=== PATIENT | male | born 1965 | race American Indian/Alaskan Native ===

== ENCOUNTER 2017-02-14 04:14 | Emergency (ER) | payer SELFPAY ==
[2017-02-14 04:30] VITALS: BP 160/95
== END 2017-02-14 10:42 | disposition left against medical advice (07) ==
LOC: ED 04:14
DX: R51 Headache (principal); I10 Essential (primary) hypertension; Z53.21 Procedure and treatment not carried out due to patient leaving prior to being seen by health care provider

== ENCOUNTER 2018-03-15 18:23 | Emergency (ER) | payer SELFPAY ==
[2018-03-15 18:44] VITALS: BP 153/80
[2018-03-15] MEDS ORDERED: MOTRIN PO ONE (21:37)
--- NOTE | 2018-03-15 21:39 | Emergency Department Report ---
ED General Adult HPI - General Chief complaint: Neck Pain/Injury Stated complaint: neck pain/dizzy/SOB Time Seen by Provider: 03/15/18 21:34 Source: patient Mode of arrival: Ambulatory Limitations: No Limitations - History of Present Illness Initial comments: 52-year-old -[place] male comes in complaining of neck pain and stiffness that started on Saturday night. Patient reports that he has a headache on the top of his head and radiates down the neck with swelling to his left side of his neck. Patient reports that he took Motrin earlier this morning which did not help. Patient reports a subjective fever. He denies any nausea, abdomen pain, vomiting, trauma, change in vision and weakness. Patient denies any recent travels outside the country in the last 30 days and no sick contact. Patient has a past medical history of hypertension currently is on amlodipine. -: days(s) Location: head Radiation: neck Severity scale (0 -10): 10 Quality: aching, constant Consistency: constant Improves with: none Worsens with: movement Associated Symptoms: denies other symptoms Treatments Prior to Arrival: NSAID (earlier this morning) - Related Data Home Medications Medication Instructions Recorded Confirmed Last Taken amLODIPine [Norvasc] 10 mg PO DAILY 03/15/18 03/15/18 1 Day Ago ~03/14/18 Previous Rx's Medication Instructions Recorded Last Taken Type Cyclobenzaprine [Flexeril] 10 mg PO TID PRN #30 tablet 03/16/18 Unknown Rx Ibuprofen [Motrin 800 MG tab] 800 mg PO Q8HR PRN #30 tablet 03/16/18 Unknown Rx Allergies Allergy/AdvReac Type Severity Reaction Status Date / Time No Known Allergies Allergy Verified 03/15/18 18:39 ED Review of Systems ROS: Stated complaint: neck pain/dizzy/SOB Other details as noted in HPI Constitutional: fever (subjective). denies: chills Eyes: denies: eye pain, vision change Respiratory: denies: cough, shortness of breath Gastrointestinal: denies: nausea, vomiting, diarrhea Genitourinary: denies: urgency, dysuria Musculoskeletal: arthralgia (neck pain and stiffness) Skin: denies: rash, lesions Neurological: headache. denies: weakness, numbness, paresthesias, confusion, abnormal gait, vertigo Psychiatric: denies: anxiety Hematological/Lymphatic: denies: easy bleeding, easy bruising ED Past Medical Hx - Past Medical History Hx Hypertension: Yes - Surgical History Additional Surgical History: LEFT KNEE - Social History Smoking Status: Never Smoker Substance Use Type: Alcohol - Medications Home Medications: Home Medications Medication Instructions Recorded Confirmed Last Taken Type amLODIPine [Norvasc] 10 mg PO DAILY 03/15/18 03/15/18 1 Day Ago History ~03/14/18 Cyclobenzaprine [Flexeril] 10 mg PO TID PRN #30 tablet 03/16/18 Unknown Rx Ibuprofen [Motrin 800 MG tab] 800 mg PO Q8HR PRN #30 tablet 03/16/18 Unknown Rx ED Physical Exam - General Limitations: No Limitations General appearance: alert, in no apparent distress - Head Head exam: Present: atraumatic, normocephalic, other (tenderness to palpate the left lateral neck. Decreased range of motion to the right and left with turning head. Patient is able to touch chin to chest with no problems. Patient has difficulty pulling head back) - Eye Eye exam: Present: PERRL, EOMI - ENT ENT exam: Present: mucous membranes moist - Neck Neck exam: Present: tenderness (left posterior and lateral), lymphadenopathy - Respiratory Respiratory exam: Present: normal lung sounds bilaterally. Absent: respiratory distress - Cardiovascular Cardiovascular Exam: Present: regular rate, normal rhythm. Absent: systolic murmur, diastolic murmur, rubs, gallop - Back Exam Back exam: Present: muscle spasm - Neurological Exam Neurological exam: Present: alert, oriented X3 - Expanded Neurological Exam Expanded Cranial nerves: EOM's Intact: Normal, Gag Reflex: Normal, Tongue Deviation: Normal, Nystagmus: Normal, Facial Sensation: Normal, Facial Palsy with Forehead Movement: Normal, Facial Palsy without Forehead Movement: Normal Cerebellar function: Finger to Nose: Normal, Heel to Patricio: Normal, Romberg: Normal Upper motor neuron: Pronator Drift: Normal Sensory exam: Upper Extremity Light Touch: Normal, Upper Extremity Temperature: Normal, UE 2 Point Discrimination: Normal Motor strength exam: RUE: 5, LUE: 5, RLE: 5, LLE: 5 Best Eye Response (Jachin): (4) open spontaneously Best Motor Response (Jachin): (6) obeys commands Best Verbal Response (Jachin): (5) oriented Jachin Total: 15 - Psychiatric Psychiatric exam: Present: normal affect, normal mood - Skin Skin exam: Present: warm, dry, intact, normal color. Absent: rash ED Course Vital Signs 03/15/18 18:39 Temperature 98.1 F Pulse Rate 83 Respiratory 18 Rate Blood Pressure 153/80 O2 Sat by Pulse 96 Oximetry ED Medical Decision Making - Lab Data Result diagrams: 03/15/18 22:07 03/15/18 22:07 - Radiology Data Radiology results: report reviewed, image reviewed FINAL REPORT EXAM: CT HEAD/BRAIN WO CON HISTORY: headache with neck stiffness TECHNIQUE: 2.5 millimeter axial images from the skullbase to the vertex. Comparison: None FINDINGS: There is no evidence of an acute intracranial process, intracranial hemorrhage or mass effect. The ventricles are normal size. The visualized portions of the orbits, paranasal and mastoid sinuses are unremarkable. The bony structures are unremarkable in appearance. IMPRESSION: 1. No evidence of an acute intracranial process, intracranial hemorrhage or mass effect. If there is a clinical suspicion of an acute intracranial process and if further imaging is required, MRI brain may be helpful. Transcribed By: ED Dictated By: TERRELL VARGHESE MD Electronically Authenticated By: TERRELL VARGHESE MD Signed Date/Time: 03/15/182211 DD/ 11 TD/TT: 03/15/182211 FINDINGS: Unenhanced CT of the cervical spine was performed and data was reformatted into the sagittal and coronal planes. These images demonstrate no fracture of the cervical spine. There are degenerative changes at the C1-C2 articulation. There is loss of intervertebral disc space height and bulky anterior osteophyte formation at C5-C6 and C6-C7. There is reversal normal cervical lordosis at C5-C6 which could be due to pain, muscle spasm or patient positioning for the examination. There is mild impingement of the exiting left C4 and left C5 nerve roots due to endplate remodeling. There is mild canal stenosis at C5-C6 due to a partially calcified posterior disc bulge. There appears to be facet fusion on the left at C4-C5. IMPRESSION: NO FRACTURE IS SEEN IN THE CERVICAL SPINE MILD CANAL STENOSIS AT C5-C6 DUE TO A PARTIALLY CALCIFIED POSTERIOR DISC BULGE IMPINGEMENT OF THE EXITING LEFT C4 AND LEFT C5 NERVE ROOTS DUE TO ENDPLATE REMODELING Transcribed By: LYNN Dictated By: KAMERON BENNETT MD Electronically Authenticated By: KAMERON BENNETT MD Signed Date/Time: 03/16/1853 DD/ TD/TT: 03/16/1853 - Medical Decision Making Patient has been evaluated by this provider fast track. Dr. Prado evaluated patient as well. Constipation possibility of needing to do a lumbar puncture. Discussed the patient the risks and benefits of having a lumbar puncture. Patient declined to have one done. Discussed the patient will go ahead and do a CT of the neck at this time. Patient verbalized understanding Patient's had a CT of brain as well as CT of neck. Patient and given ibuprofen and Flexeril for pain management and muscle relaxant. Discussed with patient the results of the CT scans. Discussed the patient that I will refer him to orthopedics for further evaluation and management of care. Patient verbalizes understanding Critical care attestation.: If time is entered above; I have spent that time in minutes in the direct care of this critically ill patient, excluding procedure time. ED Disposition Clinical Impression: Neck pain on left side, Cervical stenosis of spinal canal, Bulging of cervical intervertebral disc Disposition: DC-01 TO HOME OR SELFCARE Is pt being admited?: No Does the pt Need Aspirin: No Condition: Stable Instructions: Cervical Spinal Stenosis (ED) Additional Instructions: Please take pain medication and Flexeril as needed. It is very important free to follow up with an orthopedist. I have listed one below. Prescriptions: Cyclobenzaprine [Flexeril] 10 mg PO TID PRN #30 tablet PRN Reason: Muscle Spasm Ibuprofen [Motrin 800 MG tab] 800 mg PO Q8HR PRN #30 tablet PRN Reason: Pain , Severe (7-10) Referrals: ROBB LONG MD [Primary Care Provider] - 3-5 Days MARLI MASON MD [Staff Physician] - 3-5 Days VICTOR HUGO ZEPEDA MD [Staff Physician] - 3-5 Days NEVAEH PAYNE MD [Staff Physician] - 3-5 Days Forms: Work/School Release Form(ED), Accompanied Note
[2018-03-15 22:20] LABS: Hematocrit 42.5 % (35.5-45.6); Hemoglobin 14.2 gm/dl (11.8-15.2); Mean Corpuscular HGB Conc 33 % (32-34); Mean Corpuscular Hemoglobin 27 pg (28-32); Mean Corpuscular Volume 81 fl (84-94); Platelet Count 284 K/mm3 (140-440); Red Blood Count 5.25 M/mm3 (3.65-5.03); Red Cell Distribution Width 14.5 % (13.2-15.2)
--- NOTE | 2018-03-15 22:20 | Cat Scan Report ---
FINAL REPORT EXAM: CT HEAD/BRAIN WO CON HISTORY: headache with neck stiffness TECHNIQUE: 2.5 millimeter axial images from the skullbase to the vertex. Comparison: None FINDINGS: There is no evidence of an acute intracranial process, intracranial hemorrhage or mass effect. The ventricles are normal size. The visualized portions of the orbits, paranasal and mastoid sinuses are unremarkable. The bony structures are unremarkable in appearance. IMPRESSION: 1. No evidence of an acute intracranial process, intracranial hemorrhage or mass effect. If there is a clinical suspicion of an acute intracranial process and if further imaging is required, MRI brain may be helpful.
[2018-03-15 22:35] LABS: BUN/Creatinine Ratio 9; Blood Urea Nitrogen 8 mg/dL (9-20); Calcium 9.1 mg/dL (8.4-10.2); Hemolysis Index 6
[2018-03-15 23:04] LABS: Band Neutrophils # (Manual) 0.1 K/mm3; Basophils % (Manual) 0 % (0.0-1.8); RBC Morphology Normal; Total Cells Counted 100
[2018-03-15] MEDS ORDERED: FLEXERIL PO ONE (23:22)
[2018-03-16 00:16] LABS: INR 0.86 (0.87-1.13); Partial Thromboplastin Time 31.5 Sec. (24.2-36.6)
--- NOTE | 2018-03-16 01:01 | Cat Scan Report ---
FINAL REPORT EXAM: CT C-Spine w/o Contrast CLINICAL INDICATIONS: neck stiffness and pain FINDINGS: Unenhanced CT of the cervical spine was performed and data was reformatted into the sagittal and coronal planes. These images demonstrate no fracture of the cervical spine. There are degenerative changes at the C1-C2 articulation. There is loss of intervertebral disc space height and bulky anterior osteophyte formation at C5-C6 and C6-C7. There is reversal normal cervical lordosis at C5-C6 which could be due to pain, muscle spasm or patient positioning for the examination. There is mild impingement of the exiting left C4 and left C5 nerve roots due to endplate remodeling. There is mild canal stenosis at C5-C6 due to a partially calcified posterior disc bulge. There appears to be facet fusion on the left at C4-C5. IMPRESSION: NO FRACTURE IS SEEN IN THE CERVICAL SPINE MILD CANAL STENOSIS AT C5-C6 DUE TO A PARTIALLY CALCIFIED POSTERIOR DISC BULGE IMPINGEMENT OF THE EXITING LEFT C4 AND LEFT C5 NERVE ROOTS DUE TO ENDPLATE REMODELING
== END 2018-03-16 02:19 | disposition home or self-care (01) ==
LOC: ED 18:23
DX: M48.02 Spinal stenosis, cervical region (principal); M50.20 Other cervical disc displacement, unspecified cervical region; R51 Headache; R50.9 Fever, unspecified; I10 Essential (primary) hypertension
CPT/HCPCS: 36415; 70450; 72125; 80048; 85007; 85025; 85610; 85730; 99284